=== PATIENT | female | born 1990 | race Caucasian/White ===

== ENCOUNTER 2022-05-16 07:10 | Inpatient (IN) | payer BC ==
[2022-05-16 08:24] VITALS: BMI 39.9
[2022-05-16] MEDS ORDERED: DEXTROSE 5%-LACTATED RINGERS 1,000 ML IV SCH (08:45)
[2022-05-16] MEDS ORDERED: OXYTOCIN 30 UNITS in 0.9% NS 30 UNIT/500 ML INFUS.BAG IVPB SCH (08:45)
[2022-05-16 09:12] LABS: BASO % 0.2 % (0-2.0); EOS % 0.2 % (0-4.5); HEMATOCRIT 28.7 % (32.4-45.2); LYMPH % 9.6 % (8-40); MCHC 31.3 g/dl (32.0-36.0); MEAN CELL VOLUME 63.7 fl (80-96); MONO % 5.5 % (3.8-10.2); NEUT % 84.5 % (42.8-82.8); PLATELET COUNT 376 10^3/uL (134-434); RDW 20.3 % (11.6-15.6); WHITE BLOOD COUNT 12.7 K/mm3 (4.0-10.0)
[2022-05-16 09:15] LABS: INR 0.97 (0.83-1.09); PROTHROMBIN TIME (PATIENT) 11.2 SEC (9.7-13.0)
[2022-05-16 09:18] LABS: ACTIVATED PTT 27.1 SECONDS (25.2-36.5)
[2022-05-16] MEDS ORDERED: FENTANYL/BUPIVACAINE/NS/PF - PCEA - 50 ML DISP.SYRIN EP ONE ×5 (09:18→20:50)
[2022-05-16 09:36] LABS: BLOOD UREA NITROGEN 8.8 mg/dL (7-18)
[2022-05-16 09:40] LABS: CREATININE 0.7 mg/dL (0.55-1.3)
[2022-05-16] MEDS ORDERED: OXYTOCIN 30 UNITS in 0.9% NS 30 UNIT/500 ML INFUS.BAG IVPB ONE (09:47)
[2022-05-16 10:44] LABS: ANISOCYTOSIS 2+; MACROCYTOSIS 0; ROULEAU 1+
[2022-05-16] MEDS ORDERED: NALOXONE HCL 0.4 MG/ML VIAL IVPUSH PRN (10:50)
[2022-05-16] MEDS: FENTANYL/BUPIVACAINE/NS/PF - PCEA - 50 ML DISP.SYRIN EP SCH ×2 (11:00→20:53)
[2022-05-16] MEDS ORDERED: BUPIVACAINE HCL/PF 0.25% (2.5MG/ML) 10 ML VIAL ONE ×4 (12:19→21:29)
[2022-05-16] MEDS ORDERED: NIFEdipine E.R. 30 MG TABLET ONE (13:43)
[2022-05-16] MEDS ORDERED: NIFEdipine E.R. 30 MG TABLET PO ONE (13:45)
[2022-05-16] MEDS ORDERED: LABETALOL HCL 200 MG TABLET (FP) ONE (18:23)
[2022-05-16] MEDS ORDERED: LABETALOL HCL 200 MG TABLET (FP) PO ONE (18:30)
[2022-05-16] MEDS ORDERED: MAGNESIUM 4GM/H20 - 4 GM/100 ML IVPB IVPB ONE (18:37)
[2022-05-16] MEDS ORDERED: OXYTOCIN 20 UNITS in 0.9% NS 20 UNIT/1,000 ML INFUS.BAG IV ONE (20:45)
[2022-05-16] MEDS ORDERED: LIDOCAINE HCL 1% PRESERVATIVE FREE - 30ML VIAL ONE (20:49)
[2022-05-17] MEDS ORDERED: BISACODYL 10 MG SUPP.RECT RC PRN (02:52)
[2022-05-17] MEDS ORDERED: BENZOCAINE 28 GM HEMORRHOIDAL OINTMENT TP PRN (02:52)
[2022-05-17] MEDS ORDERED: METHYLERGONOVINE MALEATE 0.2 MG/1 ML AMP IM PRN (02:52)
[2022-05-17] MEDS ORDERED: ACETAMINOPHEN 325 MG TABLET (FP) PO PRN (02:52)
[2022-05-17] MEDS ORDERED: WITCH HAZEL 50% (TUCKS) 40 PAD/JAR PAD TP PRN (02:52)
[2022-05-17] MEDS ORDERED: oxyCODONE HCL 5 MG TABLET PO PRN (02:52)
[2022-05-17] MEDS ORDERED: OXYTOCIN 20 UNITS in 0.9% NS 20 UNIT/1,000 ML INFUS.BAG IV SCH (03:00)
[2022-05-17] MEDS: BENZOCAINE 20% 57 GM BOTTLE TP PRN (07:46)
[2022-05-17 08:29] LABS: HEMATOCRIT 24.6 % (32.4-45.2); HEMOGLOBIN 7.6 GM/dL (10.7-15.3); MCHC 30.7 g/dl (32.0-36.0); MEAN CELL VOLUME 63.7 fl (80-96); PLATELET COUNT 327 10^3/uL (134-434); RBC 3.86 M/mm3 (3.60-5.2); RDW 20.4 % (11.6-15.6)
[2022-05-17 08:46] LABS: MCH 19.6 pg (25.7-33.7)
[2022-05-17 09:02] LABS: WHITE BLOOD COUNT 30.2 K/mm3 (4.0-10.0)
[2022-05-17] MEDS: PRENATAL VITAMINS W/ FOLIC ACID TABLET (FP) PO SCH (09:17)
[2022-05-17] MEDS ORDERED: LABETALOL HCL 100 MG TABLET (FP) PO SCH (10:00)
[2022-05-17 10:40] LABS: ANISOCYTOSIS 0; MACROCYTOSIS 0
[2022-05-17] MEDS: FERROUS SO4 325 MG TABLET (FP) PO SCH ×2 (12:16→18:25)
[2022-05-17 15:27] VITALS: RESP 18
[2022-05-17] MEDS: LABETALOL HCL 100 MG TABLET (FP) PO SCH (21:58)
[2022-05-18 08:45] LABS: BASO % 0.4 % (0-2.0); EOS % 0.3 % (0-4.5); HEMATOCRIT 23.1 % (32.4-45.2); LYMPH % 12.6 % (8-40); MCHC 30.5 g/dl (32.0-36.0); MEAN CELL VOLUME 64.7 fl (80-96); MONO % 6.3 % (3.8-10.2); NEUT % 80.4 % (42.8-82.8); PLATELET COUNT 296 10^3/uL (134-434); RBC 3.56 M/mm3 (3.60-5.2); RDW 20.5 % (11.6-15.6); WHITE BLOOD COUNT 16.6 K/mm3 (4.0-10.0)
[2022-05-18 08:51] LABS: MCH 19.8 pg (25.7-33.7)
[2022-05-18] MEDS: LABETALOL HCL 100 MG TABLET (FP) PO SCH ×3 (10:43→22:09)
[2022-05-18] MEDS: IBUPROFEN 600 MG TABLET (FP) PO PRN (10:54)
[2022-05-18] MEDS: PRENATAL VITAMINS W/ FOLIC ACID TABLET (FP) PO SCH (10:55)
[2022-05-18] MEDS: FERROUS SO4 325 MG TABLET (FP) PO SCH ×2 (14:45→17:29)
[2022-05-18] MEDS ORDERED: SENNOSIDES/DOCUSATE COMBO (SENNA PLUS) TABLET (UD) PO PRN (22:00)
[2022-05-19] MEDS: IBUPROFEN 600 MG TABLET (FP) PO PRN (08:24)
[2022-05-19] MEDS: PRENATAL VITAMINS W/ FOLIC ACID TABLET (FP) PO SCH (09:49)
[2022-05-19] MEDS: LABETALOL HCL 100 MG TABLET (FP) PO SCH (09:50)
[2022-05-19 10:11] VITALS: BP 132/70; PULSE 90; TEMP 98.1
[2022-05-19] MEDS: FERROUS SO4 325 MG TABLET (FP) PO SCH (11:48)
[2022-05-19] MEDS: BENZOCAINE 20% 57 GM BOTTLE TP PRN (11:48)
== END 2022-05-19 14:00 | disposition home or self-care (01) | DRG 833 ==
LOC: JLDR 07:10 → J3W 05-17 04:15
PROVIDERS: ADMIT Obstetrics & Gynecology; ATTEND Obstetrics & Gynecology
PROC: 0HQ9XZZ Repair Perineum Skin, External Approach (ICD-10-PCS; principal; 2022-05-17)
DX: O48.0 Post-term pregnancy (principal); O70.0 First degree perineal laceration during delivery; Z3A.40 40 weeks gestation of pregnancy; Z37.0 Single live birth
CPT/HCPCS: 36415; 59409; 80048; 85025; 85610; 85730; 86780; 86850; 86900; 86901